=== PATIENT | female | born 1960 | race Caucasian/White ===

== ENCOUNTER 2022-10-23 11:01 | Inpatient (IN) ==
--- NOTE | 2022-10-23 12:06 | XRay Report ---
XR chest 2V PA/lateral CLINICAL HISTORY: abd pain TECHNIQUE: 2 views of the chest were obtained. Comparison: None available at the time of this dictation. FINDINGS: No lines and tubes are seen. The cardiomediastinal silhouette is normal. The lungs are clear. No evid ence of pleural effusion or pneumothorax. IMPRESSION: No acute chest disease. ACT 112: Negative or not required by law. Electronically signed by: Deshawn Paulino M.D. 10/23/2022 12:05 PM
--- NOTE | 2022-10-23 12:39 | Emergency Department Note ---
Impression & Plan Abdominal pain, Acute GI bleeding ED Provider Note ED Provider Note NAME: АНДРЕЙ MAE AGE:62 SEX: Female : 1960 ARRIVES VIA: Private vehicle INFORMANT: Patient ED PROVIDER(s): Ghislaine Ferguson DO CHIEF COMPLAINT: Abdominal pain, GI bleed HPI: This is a 62-year-old female presents emergency room due to concern for abdominal pain and GI bleed which started overnight. She states she began developing an ache in her central/lower abdomen and then had a sharp pain and when she went to the bathroom she saw bright red blood. She denies any additional passage of stool or diarrhea. She denies any recent change in her bowel movements. No bleeding from any other source. No use of antiplatelet or anticoagulation medications. She denies fevers, chills, nausea or vomiting. She states she was initially distended, however that has now improved. She states she now only has a dull ache in her lower abdomen, no further sharper pains. She states no prior history of PUD, IBS, or IBD. She has had a prior colonoscopy that she states was reported to her as normal. PAST MEDICAL HISTORY:See Below PAST SURGICAL HISTORY:See Below FAMILY HISTORY:See Below SOCIAL HISTORY:See Below HOME MEDICATIONS:See Below ALLERGIES:See Below VITALS:See Below PHYSICAL EXAMINATION: GENERAL: alert, well appearing, well nourished, no distress, non-toxic EYE EXAM: normal conjunctiva, PERRL and EOM's grossly intact OROPHARYNX: no exudate, no erythema, lips, buccal mucosa, and tongue normal and mucous membranes are moist NECK: supple, no nuchal rigidity, no adenopathy, non-tender LUNGS: Clear to auscultation. Normal chest wall mechanics, no w/r/r HEART: no murmurs, S1 normal and S2 normal ABDOMEN: abdomen soft, non-tender, normo-active bowel sounds, no masses, no rebound or guarding. BACK: Back is symmetrical on inspection and there is no deformity, no midline tenderness, no CVA tenderness. SKIN: no rashes, petechiae, orbruising UPPER EXTREMITIES: upper extremities are grossly normal. FROM, nml pulses b/l. LOWER EXTREMITIES: No pitting edema. FROM, nml pulses b/l. NEURO EXAM: Normal sensorium, cranial nerves II-XII grossly intact, normal speech, no facial droop,nogross weakness of arms, no gross weakness of legs. Gross sensation intact. No ataxia. Vital Signs: reviewed and remarkable Differential Diagnosis: Colitis, diverticulitis, diverticular bleed, AVM, mass, mesenteric ischemia, bowel obstruction, as well as others were considered MEDICAL DECISION MAKING: This is a 62-year-old female presents emergency department complaining of abdominal pain and diarrhea bright red blood. Patient had several episodes at home before presenting here. No history of inflammatory bowel disease or recent surgery. Patient was afebrile and vital signs stable. Labs drawn and sent, IV established, patient monitored on telemetry and sent for additional CT imaging. Patient had 4 additional episodes here of bright red blood per rectum. CT did show extensive colitis. Lactic acid and procalcitonin reassuring. H&H stable despite significant leukocytosis noted. Given persistent symptoms here and concern for ongoing losses as well as unclear etiology of colitis, case was discussed with the hospitalist team for additional evaluation and management. We did discuss empiric antibiotics versus awaiting their evaluation. They would like to evaluate the patient first before deciding on antibiotics. Patient made hemodynamically stable in the emergency room. At this time I have a lower suspicion for occult ischemic colitis. No recent risk factors for acute bacterial infection such as immunocompromise state, travel, or recent antibiotics. Consultation(s): 1617: Discussed with Lindy Anderson hospitalist team. ER Treatment Provided: See below 1545: Patient updated on results. States she has had 4 episodes here of BRBPR. Diagnostics Interpreted By Me: -ECG: [] -Cardiac Monitoring: An order was placed for continuous cardiac monitoring. The monitor shows a rate of 100 with normal sinus rhythm. -Laboratory studies: As stated above and show below. -Imaging studies: X-ray Chest: A single view study of the chest was reviewed and was negative for cardiomegaly, focal infiltrate, effusion, pulmonary edema, or wide mediastinum. Triage Nursing Note Reviewed Prior/Outside Records Reviewed Past Med/Surg History Medical History Chronic headache GERD (gastroesophageal reflux disease) HTN (hypertension) Panic disorder Pulmonary nodule Surgical History Hx of tubal ligation Family History Denies family history of Colorectal cancer Inflammatory bowel disease Social History Smoking Status: Former smoker Tobacco Type: E-cigarettes / Vaping Hx Alcohol Use: Yes Alcohol Intake Frequency: 2-4 x/Month Hx Substance Use: No Preferred Language: Ukrainian Communication Ability: Effective Prison Keeper Required: No Beliefs That Will Affect Care: None marital status: Current Living Situation: Spouse Feels Safe at Home: Yes Safety Concerns: Feels Safe At This Time Assistive Devices: Glasses Allergies Allergies Allergy/AdvReac Type Severity Reaction Status Date / Time No Known Drug Allergies AdvReac Unknown Verified 10/23/22 17:44 Home Meds Home Medications Medication Instructions Recorded Confirmed acetaminophen 500 mg tablet 500 mg PO Q6H PRN Pain 10/23/22 10/23/22 amitriptyline 25 mg tablet 50 mg PO HS headache prevention 10/23/22 10/23/22 citalopram 40 mg tablet 40 mg PO QAM 10/23/22 10/23/22 lisinopril 10 mg tablet 10 mg PO QAM 10/23/22 10/23/22 tizanidine 4 mg tablet 4 mg PO Q8H PRN Muscle Spasm 10/23/22 10/23/22 triamcinolone acetonide 0.1 % 1 applic topical DAILY rash on 10/23/22 10/23/22 topical ointment arms/legs Results & Data (ED) Vital Signs Vital Signs - 24 hr 10/23/22 11:29 10/23/22 14:52 Temperature 36.7 C 36.7 C Temperature Source Temporal Artery Scan Oral Pulse Rate 102 H Pulse Rate [Radial] 90 Respiratory Rate 20 18 Respiratory Effort / Characteristics Non-Labored Blood Pressure 158/97 H Blood Pressure [Right Arm] 177/97 H Blood Pressure Mean 117 Blood Pressure Mean [Right Arm] 123 Pulse Oximetry 98 95 Oxygen Delivery Method Room Air Room Air Sepsis Recent Fever Within 48 Hours No Sepsis New/Unexplained Change in Mental Status N/A Sepsis Action Taken by Nursing No Action Required Laboratory Data 10/23/22 12:22 10/23/22 12:22 Lab Results 07/03/23 07/03/23 07/03/23 Range/Units 12:22 12:22 14:44 WBC 19.21 H (4.8-10.8) K/ul RBC 4.46 (4.20-5.40) M/uL Hgb 13.7 (12.0-16.0) g/dl Hct 39.2 (37.0-47.0) % MCV 87.9 (80.0-100.0) fL MCH 30.7 (25.0-34.0) pg MCHC 34.9 (32.0-36.0) g/dL RDW Std Deviation 41.7 (36.4-46.3) fL RDW Coeff of [place] 13.0 (11.5-14.5) % Plt Count 352 (130-400) K/uL MPV 8.4 L (9.4-12.4) fL Immature Gran % (Auto) 0.5 % Neut % (Auto) 80.8 % Lymph % (Auto) 8.9 % [place] % (Auto) 9.2 % Eos % (Auto) 0.2 % Baso % (Auto) 0.4 % Neut # (Auto) 15.53 H (1.40-6.50) K/uL Lymph # (Auto) 1.71 (1.2-3.4) K/uL [place] # (Auto) 1.77 H (0.11-0.59) K/uL Eos # (Auto) 0.03 (0-0.50) K/uL Baso # (Auto) 0.07 (0-0.2) K/uL Immature Gran # (Auto) 0.10 (0.01-0.20) K/uL Sodium 137 (136-145) mmol/L Potassium 3.9 (3.5-5.1) mmol/L Chloride 102 (98-107) mmol/L Carbon Dioxide 26 (21-32) mmol/L Anion Gap 9 (3-11) BUN 13 (6-23) mg/dl Creatinine 0.71 (0.6-1.2) mg/dl Est Cr Clr Drug Dosing 77.9 ml/min Est GFR ( Amer) 106.5 ml/min Est GFR (Non-Af Amer) 91.9 ml/min BUN/Creatinine Ratio 18.3 (10-20) Glucose 110 H (70-99(Fasting)) mg/dl Lactate (0.4-2.0) mmol/L Calcium 10.1 (8.6-10.3) mg/dl Total Bilirubin 0.4 (0.2-1.0) mg/dl AST 24 (13-39) U/L ALT 21 (7-52) U/L Alkaline Phosphatase 78 (34-104) U/L Total Protein 7.7 (6.0-8.3) gm/dl Albumin 4.6 (3.4-5.0) gm/dl Globulin 3.1 (2.5-4.0) gm/dl Albumin/Globulin Ratio 1.5 (0.9-2) Lipase 14 (11-82) U/L Procalcitonin (0-0.5) ng/ml Urine Color Yellow Urine Appearance Clear (Clear) Urine pH 7.5 (4.5-7.5) Ur Specific [place] 1.031 H (1.000-1.030) Urine Protein Negative (Negative) Urine Glucose (UA) Negative (Negative) Urine Ketones Negative (Negative) Urine Blood Trace H (Negative) Urine Nitrite Negative (Negative) Urine Bilirubin Negative (Negative) Urine Urobilinogen Negative (Negative) Ur Leukocyte Esterase 1+ H (Negative) Urine WBC (Auto) 1-5 (0-5) /hpf Urine RBC (Auto) 0-4 (0-4) /hpf U Hyaline Cast (Auto) 1-5 (0-5) /lpf U Epithel Cells (Auto) >30 H (0-5) /lpf Urine Bacteria (Auto) Negative (Negative) SARS-CoV-2 (PCR) (Negative) Influenza Type A (PCR) (Neg) Influenza Type B (PCR) (Neg) RSV (RT-PCR) (Neg) 10/23/22 10/23/22 10/23/22 Range/Units 15:06 15:06 16:07 WBC (4.8-10.8) K/ul RBC (4.20-5.40) M/uL Hgb (12.0-16.0) g/dl Hct (37.0-47.0) % MCV (80.0-100.0) fL MCH (25.0-34.0) pg MCHC (32.0-36.0) g/dL RDW Std Deviation (36.4-46.3) fL RDW Coeff of [place] (11.5-14.5) % Plt Count (130-400) K/uL MPV (9.4-12.4) fL Immature Gran % (Auto) % Neut % (Auto) % Lymph % (Auto) % [place] % (Auto) % Eos % (Auto) % Baso % (Auto) % Neut # (Auto) (1.40-6.50) K/uL Lymph # (Auto) (1.2-3.4) K/uL [place] # (Auto) (0.11-0.59) K/uL Eos # (Auto) (0-0.50) K/uL Baso # (Auto) (0-0.2) K/uL Immature Gran # (Auto) (0.01-0.20) K/uL Sodium (136-145) mmol/L Potassium (3.5-5.1) mmol/L Chloride (98-107) mmol/L Carbon Dioxide (21-32) mmol/L Anion Gap (3-11) BUN (6-23) mg/dl Creatinine (0.6-1.2) mg/dl Est Cr Clr Drug Dosing ml/min Est GFR ( Amer) ml/min Est GFR (Non-Af Amer) ml/min BUN/Creatinine Ratio (10-20) Glucose (70-99(Fasting)) mg/dl Lactate 1.5 (0.4-2.0) mmol/L Calcium (8.6-10.3) mg/dl Total Bilirubin (0.2-1.0) mg/dl AST (13-39) U/L ALT (7-52) U/L Alkaline Phosphatase (34-104) U/L Total Protein (6.0-8.3) gm/dl Albumin (3.4-5.0) gm/dl Globulin (2.5-4.0) gm/dl Albumin/Globulin Ratio (0.9-2) Lipase (11-82) U/L Procalcitonin 0.13 (0-0.5) ng/ml Urine Color Urine Appearance (Clear) Urine pH (4.5-7.5) Ur Specific [place] (1.000-1.030) Urine Protein (Negative) Urine Glucose (UA) (Negative) Urine Ketones (Negative) Urine Blood (Negative) Urine Nitrite (Negative) Urine Bilirubin (Negative) Urine Urobilinogen (Negative) Ur Leukocyte Esterase (Negative) Urine WBC (Auto) (0-5) /hpf Urine RBC (Auto) (0-4) /hpf U Hyaline Cast (Auto) (0-5) /lpf U Epithel Cells (Auto) (0-5) /lpf Urine Bacteria (Auto) (Negative) SARS-CoV-2 (PCR) NEGATIVE (Negative) Influenza Type A (PCR) Negative (Neg) Influenza Type B (PCR) Negative (Neg) RSV (RT-PCR) Negative (Neg) Administered Medications Amitriptyline HCl (Amitriptyline Hcl 50 Mg Tab) 50 mg PO HS [facility] Stop: 11/22/22 20:59 Last Admin: 10/23/22 21:05 Dose: 50 mg Documented By: GABRIELLA Citalopram Hydrobromide (Citalopram 40 Mg Tab) 40 mg PO QAM [facility] Stop: 11/23/22 08:59 Last Admin: 10/24/22 08:04 Dose: 40 mg Documented By: SHAYY Piperacillin Sod/Tazobactam (Sod 4.5 gm/ Dextrose) 120 mls @ 30 mls/hr IV Q8H [facility]; Protocol Stop: 11/02/22 00:00 Last Infusion: 10/24/22 12:15 Dose: 0 mls/hr Documented By: Admin: 10/24/22 08:10 Dose: 30 mls/hr Documented By: Infusion: 10/24/22 03:47 Dose: 0 mls/hr Documented By: Admin: 10/23/22 23:47 Dose: 30 mls/hr Documented By: GABRIELLA Acetaminophen (Ofirmev) 1,000 mg in 100 mls @ 400 mls/hr IV Q8H [facility] Stop: 10/26/22 18:59 Last Infusion: 10/24/22 11:29 Dose: 0 mls/hr Documented By: Admin: 10/24/22 11:00 Dose: 400 mls/hr Documented By: Infusion: 10/24/22 03:03 Dose: 0 mls/hr Documented By: Admin: 10/24/22 02:46 Dose: 400 mls/hr Documented By: Infusion: 10/23/22 19:33 Dose: 0 mls/hr Documented By: Admin: 10/23/22 19:18 Dose: 400 mls/hr Documented By: GABRIELLA Lactated Ringer's (Lr) 1,000 mls @ 125 mls/hr IV .Q8H [facility] Stop: 11/22/22 18:18 Last Admin: 10/24/22 14:59 Dose: 125 mls/hr Documented By: Infusion: 10/24/22 14:44 Dose: 0 mls/hr Documented By: Admin: 10/24/22 11:30 Dose: Not Given Documented By: Infusion: 10/24/22 11:00 Dose: 125 mls/hr Documented By: Infusion: 10/24/22 08:17 Dose: 0 mls/hr Documented By: Admin: 10/24/22 02:43 Dose: 125 mls/hr Documented By: Infusion: 10/24/22 02:43 Dose: 125 mls/hr Documented By: Admin: 10/23/22 19:21 Dose: 125 mls/hr Documented By: GABRIELLA Lisinopril (Lisinopril 10 Mg Tab) 10 mg PO QAM [facility] Stop: 11/23/22 08:59 Last Admin: 10/24/22 08:05 Dose: 10 mg Documented By: SHAYY Discontinued Medications Sodium Chloride (Nss 1000ml) 1,000 mls @ 250 mls/hr IV .Q4H [facility] Stop: 11/22/22 12:59 Last Admin: 10/23/22 18:43 Dose: Not Given Documented By: Infusion: 10/23/22 17:36 Dose: 0 mls/hr Documented By: Admin: 10/23/22 13:15 Dose: 250 mls/hr Documented By: DAVID Piperacillin Sod/Tazobactam Sod (Zosyn) 4.5 gm in 120 mls @ 240 mls/hr IV NOW ONE Stop: 10/23/22 17:56 Last Admin: 10/23/22 18:43 Dose: Not Given Documented By: LYNN Acetaminophen (Ofirmev) 1,000 mg in 100 mls @ 400 mls/hr IV NOW STA Stop: 10/23/22 17:41 Last Admin: 10/23/22 18:43 Dose: Not Given Documented By: LYNN Piperacillin Sod/Tazobactam (Sod 4.5 gm/ Dextrose) 120 mls @ 240 mls/hr IV NOW ONE; Protocol Stop: 10/23/22 19:29 Last Infusion: 10/23/22 20:10 Dose: 0 mls/hr Documented By: Admin: 10/23/22 19:40 Dose: 240 mls/hr Documented By: GABRIELLA Ioversol (Optiray 320 100ml) 91 ml IV ONCE ONE Stop: 10/23/22 13:39 Last Admin: 10/23/22 13:38 Dose: 91 ml Documented By: TIANNA Miscellaneous Information (Patient's Allergy Info Needs Entered) 1 each N/A Q30M [facility] Stop: 11/22/22 17:29 Last Admin: 10/23/22 18:34 Dose: Not Given Documented By: Admin: 10/23/22 18:29 Dose: Not Given Documented By: Admin: 10/23/22 18:29 Dose: Not Given Documented By: LYNN Imaging Data Radiologist's Impression: Chest X-Ray 10/23/22 11:34 XR chest 2V PA/lateral CLINICAL HISTORY: abd pain TECHNIQUE: 2 views of the chest were obtained. Comparison: None available at the time of this dictation. FINDINGS: No lines and tubes are seen. The cardiomediastinal silhouette is normal. The lungs are clear. No evidence of pleural effusion or pneumothorax. IMPRESSION: No acute chest disease. ACT 112: Negative or not required by law. Electronically signed by: Deshawn Paulino M.D. 10/23/2022 12:05 PM Abdomen/Pelvis CT 10/23/22 12:50 CT OF THE ABDOMEN AND PELVIS WITH CONTRAST CLINICAL HISTORY: Abdominal pain. GI bleed. COMPARISON STUDY: None. TECHNIQUE: Following IV administration of 91 mL of Optiray, axial images of the abdomen and pelvis were obtained from the lung bases to the proximal femurs. Images were reviewed in the axial, sagittal, and coronal planes. IV contrast was administered without complication. Automated exposure control was utilized for the study. A dose lowering technique was utilized adhering to the principles of ALARA. CT DOSE: 930.33 mGy.cm FINDINGS: Lung bases are unremarkable. No pneumatosis stenosis, free air or portal venous gas is present. There are no hepatic lesions. There is no biliary or pancreatic ductal dilatation. The spleen, adrenal glands and kidneys are unremarkable. There is no hydronephrosis. There is no evidence for a bowel obstruction. The appendix is normal. Note is made of moderate wall thickening of the distal transverse colon, the splenic flexure of the colon and the proximal to mid descending colon. There is associated pericolonic stranding and a small amount of fluid. No abscess is present. No lymphadenopathy is present. There is moderate plaque of the abdominal aorta. The proximal mesenteric vessels are patent. IMPRESSION: Moderate wall thickening with associated pericolonic stranding and fluid involving the distal transverse colon, the splenic flexure and the proximal to mid descending colon. This represents a colitis. Although nonspecific, this distribution raises the possibility of ischemic colitis. No abscess. No free air. ACT 112: Negative or not required by law. Electronically signed by: John Figueroa M.D. 10/23/2022 2:10 PM Discharge Plan Visit Data Chief Complaint: Diarrhea Stated Complaint: BLOOD IN STOOL; DIARRHEA ED Provider: Ghislaine Ferguson Discharge Problem: Abdominal pain, Acute GI bleeding Patient Disposition: Admitted As Inpatient Discharge Instructions Interventions: ED Discharge Assessment Last Done: 10/23/22 17:35
[2022-10-23 12:53] LABS: Basophils # (auto) 0.07 K/uL (0-0.2); Basophils % (auto) 0.4 %; Eosinophils # (auto) 0.03 K/uL (0-0.50); Eosinophils % (auto) 0.2 %; Hematocrit (blood only) 39.2 % (37.0-47.0); Hemoglobin 13.7 g/dl (12.0-16.0); Immature Granulocytes % (auto) 0.5 %; Lymphocytes # (auto) 1.71 K/uL (1.2-3.4); Lymphocytes % (auto) 8.9 %; Mean Corpuscular Hemoglobin 30.7 pg (25.0-34.0); Mean Corpuscular Hgb Conc 34.9 g/dL (32.0-36.0); Mean Corpuscular Volume 87.9 fL (80.0-100.0); Mean Platelet Volume 8.4 fL (9.4-12.4); Monocytes # (auto) 1.77 K/uL (0.11-0.59); Monocytes % (auto) 9.2 %; Neutrophils # (auto) 15.53 K/uL (1.40-6.50); Neutrophils % (auto) 80.8 %; Platelet Count 352 K/uL (130-400); RDW Standard Deviation 41.7 fL (36.4-46.3); Red Blood Count 4.46 M/uL (4.20-5.40); White Blood Count 19.21 K/ul (4.8-10.8)
[2022-10-23 13:09] LABS: Albumin Globulin Ratio 1.5 (0.9-2); Albumin Level 4.6 gm/dl (3.4-5.0); BUN Creatinine Ratio 18.3 (10-20); Bilirubin,Total 0.4 mg/dl (0.2-1.0); Calcium 10.1 mg/dl (8.6-10.3); Creatinine Clr Calc Pharmacy 77.9 ml/min; Est GFR (African American) 106.5 ml/min; Est GFR (Non-African American) 91.9 ml/min; Globulin 3.1 gm/dl (2.5-4.0); Potassium 3.9 mmol/L (3.5-5.1); Total Protein 7.7 gm/dl (6.0-8.3)
[2022-10-23] MEDS: SODIUM CHLORIDE 0.9% 1000ML 1,000 ML IV SCH ×2 (13:15→18:43)
[2022-10-23] MEDS ORDERED: OPTIRAY 320 100ml IV ONE (13:38)
--- NOTE | 2022-10-23 14:11 | CT Scan Report ---
CT OF THE ABDOMEN AND PELVIS WITH CONTRAST CLINICAL HISTORY: Abdominal pain. GI bleed. COMPARISON STUDY: None. TECHNIQUE: Following IV administration of 91 mL of Optiray, axial images of the abdomen and pelvis we re obtained from the lung bases to the proximal femurs. Images were reviewed in the axial, sagittal, and coronal planes. IV contrast was administered without complication. Automated exposure control wa s utilized for the study. A dose lowering technique was utilized adhering to the principles of ALARA . CT DOSE: 930.33 mGy.cm FINDINGS: Lung bases are unremarkable. No pneumatosis stenosis, free air or portal venous gas is pres ent. There are no hepatic lesions. There is no biliary or pancreatic ductal dilatation. The spleen, a drenal glands and kidneys are unremarkable. There is no hydronephrosis. There is no evidence for a nubia wel obstruction. The appendix is normal. Note is made of moderate wall thickening of the distal trans verse colon, the splenic flexure of the colon and the proximal to mid descending colon. There is asso ciated pericolonic stranding and a small amount of fluid. No abscess is present. No lymphadenopathy i s present. There is moderate plaque of the abdominal aorta. The proximal mesenteric vessels are paten t. IMPRESSION: Moderate wall thickening with associated pericolonic stranding and fluid involving the d istal transverse colon, the splenic flexure and the proximal to mid descending colon. This represents a colitis. Although nonspecific, this distribution raises the possibility of ischemic colitis. No ab scess. No free air. ACT 112: Negative or not required by law. Electronically signed by: John Figuerao M.D. 10/23/2022 2:10 PM
[2022-10-23 15:10] LABS: Appearance Urine Clear (Clear); Bacteria Urine Automated Negative (Negative); Bilirubin Urine Negative (Negative); Blood Urine Trace (Negative); Color Urine Yellow; Epithelial Cell Urine Auto >30 /lpf (0-5); Glucose Urine UA Negative (Negative); Ketones Urine Negative (Negative); Leukocyte Esterase Urine 1+ (Negative); Nitrite Urine Negative (Negative); Protein Urine Negative (Negative); RBC Urine Automated 0-4 /hpf (0-4); Specific Gravity Urine 1.031 (1.000-1.030); Urobilinogen Urine Negative (Negative); pH Urine 7.5 (4.5-7.5)
[2022-10-23 17:11] LABS: Influenza A virus by PCR Negative (Neg); Influenza B virus by PCR Negative (Neg); RSV by PCR Negative (Neg); SARS CoV2 RNA(COVID-19) Ceph NEGATIVE (Negative)
[2022-10-23] MEDS ORDERED: ACETAMINOPHEN 1,000 MG/100 ML VIAL IV STA (17:27)
[2022-10-23] MEDS ORDERED: PIPERACILLIN/TAZOBACTAM 4.5 GM/120 ML BAG IV ONE (17:27)
--- NOTE | 2022-10-23 17:32 | History & Physical Report ---
Date of Service October 23, 2022 Assessment & Plan (1) Colitis: (2) Acute GI bleeding: (3) Abdominal pain: (4) Leukocytosis: Plan This is a 62-year-old female who has a significant past medical history of HTN, chronic migraine, chronic daily headache, panic disorder, GERD who presents to ED secondary to abdominal pain and bloody diarrhea x1 day. Colitis Acute GI bleeding Abdominal pain Leukocytosis Admit to PCU in setting of GI bleeding Current hemoglobin stable Repeat hemoglobin and lactic acid at 2000 Initial lactic acid negative LR at 125 cc/h IV zosyn Consult GI Type and cross for 1 unit to be placed on hold, blood consent obtained Obtain stool culture if able Schedule IV Tylenol with as needed IV morphine for breakthrough pain NPO except sips/meds Blood consent was obtained from the patient (or patient delegate) as delegated by Dr. Perez. Risks and benefits were explained. All questions were answered, and the patient was offered the opportunity to discuss with attending physician and declined. Migraine GOTTLIEB, chronic continue elavil, prn tizanadine HTN bp elevated in ED, likely 2/2 pain continue lisinopril Panic disorder continue cymbalta DVT ppx: SCDs 2/2 GI Bleeding FULL CODE PCP: Dr. Laureano Whitaker Pt was seen and examined in collaboration with Dr. Perez please see addendum History of Present Illness Chief Complaint: Abdominal pain x1 day. Primary Care Provider: Dr. Whitaker This is a 62-year-old female who has a significant past medical history of HTN, chronic migraine, chronic daily headache, panic disorder, GERD who presents to ED secondary to abdominal pain and bloody diarrhea x1 day. Symptoms started at approximately 1 AM this morning when she developed centralized and lower suprapubic abdominal pain. Pain was constant but would wax and wane in severit y. Described as dull and occasionally crampy. Pain did not radiate. She is never experienced this before. It was initially associated with a few episodes of diarrhea and now mostly just passing bright red blood per rectum. Currently pain is a 4 out of 10 but at its worst was an 8 out of 10. She has not tried anything to relieve the pain. Leaning forward makes the pain worse. She does have history of colonoscopy back in 2012 which was otherwise unremarkable. Only prior abdominal history was a tubal. She is a prior tobacco smoker and currently does vape nicotine. She occasionally has alcohol. She denies any recent travel, sick contacts or change in diet. She denies any fever, chills, sweats, lightheadedness, dizziness, chest pain, shortness of breath, cough, nausea, vomiting. She currently does have a headache and attributes this to her chronic daily headache. She is currently requesting something for pain. In ED patient remained hemodynamically stable that was significantly hypertensive. CBC revealed leukocytosis at 19.21 K, H&H stable at 13.7 and 39.2, glucose mildly elevated at 110, lactic acid normal at 1.5 and procalcitonin 0.13. Allergies Allergy/AdvReac Type Severity Reaction Status Date / Time No Known Drug Allergies AdvReac Unknown Verified 10/23/22 17:44 Home Medications Medication Instructions Recorded Confirmed Type acetaminophen 500 mg tablet 500 mg PO Q6H PRN Pain 10/23/22 10/23/22 History amitriptyline 25 mg tablet 50 mg PO HS headache prevention 10/23/22 10/23/22 History citalopram 40 mg tablet 40 mg PO QAM 10/23/22 10/23/22 History lisinopril 10 mg tablet 10 mg PO QAM 10/23/22 10/23/22 History tizanidine 4 mg tablet 4 mg PO Q8H PRN Muscle Spasm 10/23/22 10/23/22 History triamcinolone acetonide 0.1 % 1 applic topical DAILY rash on 10/23/22 10/23/22 History topical ointment arms/legs Past Med/Surg History Medical History (Updated 10/23/22 @ 17:40 by Monica Nunez PA-C) Chronic headache GERD (gastroesophageal reflux disease) HTN (hypertension) Panic disorder Pulmonary nodule Surgical History (Updated 10/23/22 @ 17:34 by Monica Nunez PA-C) Hx of tubal ligation Family History (Updated 10/23/22 @ 17:35 by Monica Nunez PA-C) Denies family history of Colorectal cancer Inflammatory bowel disease Social History (Updated 10/23/22 @ 17:34 by Monica Nunez PA-C) Smoking Status: Former smoker Tobacco Type: E-cigarettes / Vaping Hx Alcohol Use: Yes Alcohol Intake Frequency: 2-4 x/Month Hx Substance Use: No Preferred Language: Tajik Communication Ability: Effective Projection Camera Operator Required: No Beliefs That Will Affect Care: None marital status: Current Living Situation: Spouse Feels Safe at Home: Yes Safety Concerns: Feels Safe At This Time Assistive Devices: Glasses Review of Systems Review of Systems: All systems reviewed & are unremarkable except as noted in HPI & below Physical Exam Physical Exam: Constitutional: WD/WN, vitals as above, NAD, sitting up in bed, pleasant, conversing easily Head: Normocephalic, Atraumatic Eyes: PERRL, conjunctivae normal, anicteric sclerae ENMT: external ear and nose normal, oropharynx normal Neck: trachea midline, no thyromegaly normal visual inspection Respiratory: normal respiratory effort, lungs clear to auscultation, no wheeze, rales, rhonchi. Normal insp/exp effort, no accessory muscle use Cardiovascular: RRR, no murmur, no edema Vessels: no JVD or carotid bruit Chest: normal inspection of chest Abdomen: normal bowel sounds, soft, minimally tender to palp LUQ, no hepatosplenomegaly Musculoskeletal: no cyanosis or clubbing, extremities motor strength 5/5 Skin: no rashes, warm and dry normal turgor Neurologic: PERRL, EOMI, accommodation nl, no face palsy, no dysarthria CN's II-XI intact bilaterally and moves all extremities Psychiatric: A+Ox3, euthymic affect Lymphatic: no cervical or axillary lymphadenopathy : deferred Results & Data Results & Data Vital Signs (Past 12 Hours) Vital Signs Temp Pulse Pulse Resp BP BP Pulse Ox 10/23/22 14:52 36.7 C 90 18 177/97 H 95 10/23/22 11:29 36.7 C 102 H 20 158/97 H 98 O2 Del Method 10/23/22 14:52 Room Air 10/23/22 11:29 Room Air Diagnostic Findings Chest X-Ray 10/23/22 11:34 XR chest 2V PA/lateral CLINICAL HISTORY: abd pain TECHNIQUE: 2 views of the chest were obtained. Comparison: None available at the time of this dictation. FINDINGS: No lines and tubes are seen. The cardiomediastinal silhouette is normal. The lungs are clear. No evidence of pleural effusion or pneumothorax. IMPRESSION: No acute chest disease. ACT 112: Negative or not required by law. Electronically signed by: Deshawn Paulino M.D. 10/23/2022 12:05 PM Abdomen/Pelvis CT 10/23/22 12:50 CT OF THE ABDOMEN AND PELVIS WITH CONTRAST CLINICAL HISTORY: Abdominal pain. GI bleed. COMPARISON STUDY: None. TECHNIQUE: Following IV administration of 91 mL of Optiray, axial images of the abdomen and pelvis were obtained from the lung bases to the proximal femurs. Images were reviewed in the axial, sagittal, and coronal planes. IV contrast was administered without complication. Automated exposure control was utilized for the study. A dose lowering technique was utilized adhering to the principles of ALARA. CT DOSE: 930.33 mGy.cm FINDINGS: Lung bases are unremarkable. No pneumatosis stenosis, free air or portal venous gas is present. There are no hepatic lesions. There is no biliary or pancreatic ductal dilatation. The spleen, adrenal glands and kidneys are unremarkable. There is no hydronephrosis. There is no evidence for a bowel obstruction. The appendix is normal. Note is made of moderate wall thickening of the distal transverse colon, the splenic flexure of the colon and the proximal to mid descending colon. There is associated pericolonic stranding and a small amount of fluid. No abscess is present. No lymphadenopathy is present. There is moderate plaque of the abdominal aorta. The proximal mesenteric vessels are patent. IMPRESSION: Moderate wall thickening with associated pericolonic stranding and fluid involving the distal transverse colon, the splenic flexure and the proximal to mid descending colon. This represents a colitis. Although nonspecific, this distribution raises the possibility of ischemic colitis. No abscess. No free air. ACT 112: Negative or not required by law. Electronically signed by: John Figueroa M.D. 10/23/2022 2:10 PM Medications Administered Medication List Sodium Chloride (Nss 1000ml) 1,000 mls @ 250 mls/hr IV .Q4H EMILE Stop: 11/22/22 12:59 Last Admin: 10/23/22 13:15 Dose: 250 mls/hr Documented By: NRB Discontinued Medications Ioversol (Optiray 320 100ml) 91 ml IV ONCE ONE Stop: 10/23/22 13:39 Last Admin: 10/23/22 13:38 Dose: 91 ml Documented By: TIANNA COVID-19 Results Results COVID-19 Adm Lab Results: RBC 4.46 M/uL (4.20-5.40) 10/23/22 WBC 19.21 K/ul (4.8-10.8) H 10/23/22 Hgb 14.5 g/dl (12.0-16.0) 10/23/22 Hct 41.6 % (37.0-47.0) 10/23/22 Plt Count 352 K/uL (130-400) 10/23/22 Neutrophils (%) (Auto) 80.8 % 10/23/22 Lymphocytes (%) (Auto) 8.9 % 10/23/22 Monocytes # (Auto) 1.77 K/uL (0.11-0.59) H 10/23/22 Eosinophils # (Auto) 0.03 K/uL (0-0.50) 10/23/22 Immature Granulocyte % (Auto) 0.5 % 10/23/22 Neutrophils # (Auto) 15.53 K/uL (1.40-6.50) H 10/23/22 Lymphocytes # (Auto) 1.71 K/uL (1.2-3.4) 10/23/22 Monocytes # (Auto) 1.77 K/uL (0.11-0.59) H 10/23/22 Eosinophils # (Auto) 0.03 K/uL (0-0.50) 10/23/22 Basophils # (Auto) 0.07 K/uL (0-0.2) 10/23/22 Immature Granulocyte # (Auto) 0.10 K/uL (0.01-0.20) 3 Na 137 mmol/L (136-145) 10/23/22 K 3.9 mmol/L (3.5-5.1) 10/23/22 Cl 102 mmol/L (98-107) 10/23/22 CO2 26 mmol/L (21-32) 10/23/22 Anion Gap 9 (3-11) 10/23/22 BUN 13 mg/dl (6-23) 10/23/22 Creatinine 0.71 mg/dl (0.6-1.2) 10/23/22 BUN/Creatinine Ratio 18.3 (10-20) 10/23/22 Glucose Level 110 mg/dl (70-99(Fasting)) H 10/23/22 Ca 10.1 mg/dl (8.6-10.3) 10/23/22 Total Bilirubin 0.4 mg/dl (0.2-1.0) 10/23/22 AST/SGOT 24 U/L (13-39) 10/23/22 ALT/SGPT 21 U/L (7-52) 10/23/22 Alkaline Phosphatase 78 U/L (34-104) 10/23/22 Total Protein 7.7 gm/dl (6.0-8.3) 10/23/22 Albumin 4.6 gm/dl (3.4-5.0) 10/23/22 Globulin 3.1 gm/dl (2.5-4.0) 10/23/22 Albumin/Globulin Ratio 1.5 (0.9-2) 10/23/22 Procalcitonin 0.13 ng/ml (0-0.5) 10/23/22 COVID-19 PCR NEGATIVE (Negative) 10/23/22 Influenza Virus Type A (PCR) Negative (Neg) 10/23/22 Influenza Virus Type B (PCR) Negative (Neg) 10/23/22 Chest X-Ray 10/23/22 Code Status & VTE Plan Code Status FULL CODE VTE Prophylaxis Plan VTE Prophylaxis will be ordered: Yes Supervising Physician Co-Signing Physician Notes Ms. Lazaro is a 62 year old female with pmhx (per chart) of HTN, chronic migraine, chronic daily headache, panic disorder, and GERD. She presented with 1 day of painful bloody diarrhea. Here she was found to have colitis on CT. Hgb/hct remains stable thus far. Pt seen and examined at bedside. She endorses 1 day of painful bloody diarrhea that is ongoing. She is currently pain free. Pain develops and builds up until she has a bowel movement which relieves the pain. She denies dizziness, lightheadedness, f/c/n/v, CP, palpitations, and sob. She has no other complaints. PE: General: NAD, well nourished, non-toxic appearing Head: NC AT Eyes: anicteric sclera, no conjunctival injection Nose: nares patent Mouth: MMM Neck: supple, trachea midline CV: RRR S1 S2 Pulm: CTA b/l Abd/GI: + BS, soft, NT, ND, no guarding : no palafox Ext: no pretibial edema MSK: normal bulk and tone Neuro: moving all 4 extremities symmetrically, alert and Ox3, no focal deficits Psych: pleasant mood and affect Skin: visible skin is warm, dry, and without rash. Pt not fully undressed for exam. # acute GIB: based on presentation likely LGIB therefore will hold off on IV PPI serial h/h, t&S, maintain 2 large bore IV, transfuse as needed to maintain hgb > 7 continue Zosyn for possible infectious etiology continue IVF, anticipate some drop in h/h d/t hemodilution CT read as possible ischemic colitis however exam is not consistent with that and lactic acid is wnl making this unlikely GI consulted, appreciate input, will follow recs continue analgesia no nsaids # HTN: continue lisinopril, increase dose if needed # chronic GOTTLIEB, Migraine: continue Amitriptyline no complaints at this time # panic disorder: no complaints despite fireworks, continue Citalopram Rest per attested note above
[2022-10-23] MEDS ORDERED: MoRPHine SULFATE 4 MG/ML 1 ML CARP\\VIAL IV PRN (18:19)
[2022-10-23] MEDS ORDERED: tiZANidine HCL 4 MG TABLET PO PRN (18:19)
[2022-10-23] MEDS ORDERED: MoRPHine SULFATE 2 MG/ML CARP IV PRN (18:19)
[2022-10-23] MEDS ORDERED: ACETAMINOPHEN 325 MG TAB PO PRN (18:19)
[2022-10-23] MEDS ORDERED: ONDANSETRON INJ 2 MG/ML 2 ML VIAL IV PRN (18:19)
[2022-10-23] MEDS ORDERED: SODIUM CHLORIDE 0.9% 250 ML IV PRN (18:19)
[2022-10-23] MEDS: Patient's ALLERGY Info needs ENTERED SCH ×2 (18:29→18:34)
[2022-10-23] MEDS ORDERED: PIPERACILLIN/TAZOBACTAM 4.5 GM (over 30 mins) IV ONE (19:00)
[2022-10-23 19:12] LABS: Hematocrit (blood only) 41.6 % (37.0-47.0); Hemoglobin 14.5 g/dl (12.0-16.0)
[2022-10-23] MEDS: ACETAMINOPHEN 1,000 MG/100 ML VIAL IV SCH (19:18)
[2022-10-23] MEDS: LACTATED RINGER'S 1,000 ML IV SCH (19:21)
[2022-10-23] MEDS: AMITRIPTYLINE HCL 50 MG TAB PO SCH (21:05)
[2022-10-23] MEDS: PIPERACILLIN/TAZOBACTAM 4.5 GM in DEXTROSE 5% 100 ML IV SCH (23:47)
[2022-10-24] MEDS: LACTATED RINGER'S 1,000 ML IV SCH ×3 (02:43→14:59)
[2022-10-24] MEDS: ACETAMINOPHEN 1,000 MG/100 ML VIAL IV SCH ×3 (02:46→18:39)
[2022-10-24 06:12] LABS: Basophils # (auto) 0.05 K/uL (0-0.2); Basophils % (auto) 0.4 %; Eosinophils # (auto) 0.22 K/uL (0-0.50); Eosinophils % (auto) 1.6 %; Hemoglobin 12.6 g/dl (12.0-16.0); Immature Granulocytes # (auto) 0.06 K/uL (0.01-0.20); Immature Granulocytes % (auto) 0.4 %; Mean Corpuscular Hemoglobin 30.4 pg (25.0-34.0); Mean Corpuscular Hgb Conc 34.1 g/dL (32.0-36.0); Mean Corpuscular Volume 89.2 fL (80.0-100.0); Mean Platelet Volume 8.4 fL (9.4-12.4); Monocytes # (auto) 1.31 K/uL (0.11-0.59); Monocytes % (auto) 9.4 %; Neutrophils # (auto) 9.57 K/uL (1.40-6.50); Neutrophils % (auto) 68.2 %; Platelet Count 312 K/uL (130-400); RDW Coefficient of Variation 13.2 % (11.5-14.5); RDW Standard Deviation 43.5 fL (36.4-46.3); Red Blood Count 4.15 M/uL (4.20-5.40); White Blood Count 14.01 K/ul (4.8-10.8)
[2022-10-24 06:24] LABS: Albumin Globulin Ratio 1.3 (0.9-2); Albumin Level 3.6 gm/dl (3.4-5.0); BUN Creatinine Ratio 10.3 (10-20); Bilirubin,Total 0.5 mg/dl (0.2-1.0); Calcium 8.8 mg/dl (8.6-10.3); Creatinine Clr Calc Pharmacy 70.9 ml/min; Est GFR (African American) 95.1 ml/min; Est GFR (Non-African American) 82.1 ml/min; Globulin 2.7 gm/dl (2.5-4.0); Magnesium 1.9 mg/dl (1.7-2.4); Potassium 4.5 mmol/L (3.5-5.1); Total Protein 6.3 gm/dl (6.0-8.3)
[2022-10-24] MEDS: CITALOPRAM 40 MG TAB PO SCH (08:04)
[2022-10-24] MEDS: lisinopril 10 MG TAB PO SCH (08:05)
[2022-10-24] MEDS: PIPERACILLIN/TAZOBACTAM 4.5 GM in DEXTROSE 5% 100 ML IV SCH ×3 (08:10→22:55)
--- NOTE | 2022-10-24 08:15 | Gastrointestinal Consultation ---
Date of Consultation October 24, 2022 Assessment & Plan (1) Colitis: Pleasant woman with an acute onset of abdominal pain and bloody stools. I think the two most likely causes are ischemic colitis or acute infectious enteritis with invasive characteristics. Ischemia of the colon does not necessarily lead to a lactic acidosis. She could have just manifested onset of ulcerative colitis or Crohn's disease but that would be a diagnosis made when this doesn't resolve over the next few days and becomes chronic. At this time I would just observe as she seems to be getting better. She is on antibiotics which will cover infectious issue. Do not plan colonoscopy at this point. History of Present Illness Reason for Consultation: rectal bleeding Attending Physician: Alvaro Lowery MD History of Present Illness 62 year old female with 24 hours abdominal cramping pain and passing blood. She doesn't see much stool she mainly sees blood. Initially she says she was going "lots" and now it seems to be slowing down. She has never had anything like this before. She denies fever or chills. She denies nausea or vomiting. She ate chicken the night before this happened that her cooked. She has not been exposed to anyone with similar illness. She doesn't have chronic stomach issues. She says her last colonoscopy was about five years ago at [facility]. CT on admit shows evidence of colitis Allergies Allergy/AdvReac Type Severity Reaction Status Date / Time No Known Drug Allergies AdvReac Unknown Verified 10/23/22 17:44 Home Medications Medication Instructions Recorded Confirmed Type acetaminophen 500 mg tablet 500 mg PO Q6H PRN Pain 10/23/22 10/23/22 History amitriptyline 25 mg tablet 50 mg PO HS headache prevention 10/23/22 10/23/22 History citalopram 40 mg tablet 40 mg PO QAM 10/23/22 10/23/22 History lisinopril 10 mg tablet 10 mg PO QAM 10/23/22 10/23/22 History tizanidine 4 mg tablet 4 mg PO Q8H PRN Muscle Spasm 10/23/22 10/23/22 History triamcinolone acetonide 0.1 % 1 applic topical DAILY rash on 10/23/22 10/23/22 History topical ointment arms/legs Patient History Medical History Chronic headache GERD (gastroesophageal reflux disease) HTN (hypertension) Panic disorder Pulmonary nodule Surgical History Hx of tubal ligation Family History Denies family history of Colorectal cancer Inflammatory bowel disease Social History Smoking Status: Former smoker Tobacco Type: E-cigarettes / Vaping Hx Alcohol Use: Yes Alcohol Intake Frequency: 2-4 x/Month Hx Substance Use: No Preferred Language: Albanian Communication Ability: Effective Pattern Hanger Required: No Beliefs That Will Affect Care: None marital status: Current Living Situation: Spouse Feels Safe at Home: Yes Safety Concerns: Feels Safe At This Time Assistive Devices: Glasses Review of Systems Review of Systems: All systems reviewed & are unremarkable except as noted in HPI & below Physical Exam Constitutional: WD/WN, vitals as above no acute distress Eyes: PERRL, conjunctivae normal, anicteric sclerae ENMT: external ear and nose normal, oropharynx normal Neck: trachea midline, no thyromegaly Respiratory: normal respiratory effort, lungs clear to auscultation Cardiovascular: RRR, no murmur, no edema Gastrointestinal (Abdomen): normal bowel sounds, soft, nontender, no hepatosplenomegaly Musculoskeletal: Extremities: no cyanosis and no clubbing Skin: no rashes, warm and dry Neurologic: PERRL, EOMI, accommodation nl, no face palsy, no dysarthria Psychiatric: Orientation: alert and oriented x 3 Results & Data Vital Signs (Past 12 Hours) Vital Signs Temp Pulse Pulse Resp BP Pulse Ox O2 Del Method 10/24/22 07:57 80 10/24/22 07:38 36.6 C 90 18 117/76 95 Room Air 10/24/22 03:00 36.7 C 89 20 107/74 96 Room Air 10/23/22 23:10 36.7 C 87 20 109/71 96 Room Air Laboratory Results 10/24/22 10/24/22 10/24/22 Range/Units 05:28 05:28 05:28 WBC 14.01 H (4.8-10.8) K/ul RBC 4.15 L (4.20-5.40) M/uL Hgb 12.6 (12.0-16.0) g/dl Hct 37.0 (37.0-47.0) % MCV 89.2 (80.0-100.0) fL MCH 30.4 (25.0-34.0) pg MCHC 34.1 (32.0-36.0) g/dL RDW Std Deviation 43.5 (36.4-46.3) fL RDW Coeff of Irwin 13.2 (11.5-14.5) % Plt Count 312 (130-400) K/uL MPV 8.4 L (9.4-12.4) fL Immature Gran % (Auto) 0.4 % Neut % (Auto) 68.2 % Lymph % (Auto) 20.0 % Traverse % (Auto) 9.4 % Eos % (Auto) 1.6 % Baso % (Auto) 0.4 % Neut # (Auto) 9.57 H (1.40-6.50) K/uL Lymph # (Auto) 2.80 (1.2-3.4) K/uL Traverse # (Auto) 1.31 H (0.11-0.59) K/uL Eos # (Auto) 0.22 (0-0.50) K/uL Baso # (Auto) 0.05 (0-0.2) K/uL Immature Gran # (Auto) 0.06 (0.01-0.20) K/uL Sodium 138 (136-145) mmol/L Potassium 4.5 (3.5-5.1) mmol/L Chloride 106 (98-107) mmol/L Carbon Dioxide 26 (21-32) mmol/L Anion Gap 6 (3-11) BUN 8 (6-23) mg/dl Creatinine 0.78 (0.6-1.2) mg/dl Est Cr Clr Drug Dosing 70.9 ml/min Est GFR ( Amer) 95.1 ml/min Est GFR (Non-Af Amer) 82.1 ml/min BUN/Creatinine Ratio 10.3 (10-20) Glucose 117 H (70-99(Fasting)) mg/dl Estimat Average Glucose Pending Hemoglobin A1c Pending Lactate (0.4-2.0) mmol/L Calcium 8.8 (8.6-10.3) mg/dl Magnesium 1.9 (1.7-2.4) mg/dl Total Bilirubin 0.5 (0.2-1.0) mg/dl AST 26 (13-39) U/L ALT 26 (7-52) U/L Alkaline Phosphatase 60 (34-104) U/L Total Protein 6.3 (6.0-8.3) gm/dl Albumin 3.6 (3.4-5.0) gm/dl Globulin 2.7 (2.5-4.0) gm/dl Albumin/Globulin Ratio 1.3 (0.9-2) Lipase (11-82) U/L Procalcitonin (0-0.5) ng/ml Urine Color Urine Appearance (Clear) Urine pH (4.5-7.5) Ur Specific [place] (1.000-1.030) Urine Protein (Negative) Urine Glucose (UA) (Negative) Urine Ketones (Negative) Urine Blood (Negative) Urine Nitrite (Negative) Urine Bilirubin (Negative) Urine Urobilinogen (Negative) Ur Leukocyte Esterase (Negative) Urine WBC (Auto) (0-5) /hpf Urine RBC (Auto) (0-4) /hpf U Hyaline Cast (Auto) (0-5) /lpf U Epithel Cells (Auto) (0-5) /lpf Urine Bacteria (Auto) (Negative) SARS-CoV-2 (PCR) (Negative) Influenza Type A (PCR) (Neg) Influenza Type B (PCR) (Neg) RSV (RT-PCR) (Neg) Blood Type Blood Type Recheck Antibody Screen Crossmatch 10/23/22 10/23/22 10/23/22 Range/Units 18:55 18:52 18:52 WBC (4.8-10.8) K/ul RBC (4.20-5.40) M/uL Hgb 14.5 (12.0-16.0) g/dl Hct 41.6 (37.0-47.0) % MCV (80.0-100.0) fL MCH (25.0-34.0) pg MCHC (32.0-36.0) g/dL RDW Std Deviation (36.4-46.3) fL RDW Coeff of Irwin (11.5-14.5) % Plt Count (130-400) K/uL MPV (9.4-12.4) fL Immature Gran % (Auto) % Neut % (Auto) % Lymph % (Auto) % Traverse % (Auto) % Eos % (Auto) % Baso % (Auto) % Neut # (Auto) (1.40-6.50) K/uL Lymph # (Auto) (1.2-3.4) K/uL Traverse # (Auto) (0.11-0.59) K/uL Eos # (Auto) (0-0.50) K/uL Baso # (Auto) (0-0.2) K/uL Immature Gran # (Auto) (0.01-0.20) K/uL Sodium (136-145) mmol/L Potassium (3.5-5.1) mmol/L Chloride (98-107) mmol/L Carbon Dioxide (21-32) mmol/L Anion Gap (3-11) BUN (6-23) mg/dl Creatinine (0.6-1.2) mg/dl Est Cr Clr Drug Dosing ml/min Est GFR ( Amer) ml/min Est GFR (Non-Af Amer) ml/min BUN/Creatinine Ratio (10-20) Glucose (70-99(Fasting)) mg/dl Estimat Average Glucose Hemoglobin A1c Lactate 1.9 (0.4-2.0) mmol/L Calcium (8.6-10.3) mg/dl Magnesium (1.7-2.4) mg/dl Total Bilirubin (0.2-1.0) mg/dl AST (13-39) U/L ALT (7-52) U/L Alkaline Phosphatase (34-104) U/L Total Protein (6.0-8.3) gm/dl Albumin (3.4-5.0) gm/dl Globulin (2.5-4.0) gm/dl Albumin/Globulin Ratio (0.9-2) Lipase (11-82) U/L Procalcitonin (0-0.5) ng/ml Urine Color Urine Appearance (Clear) Urine pH (4.5-7.5) Ur Specific [place] (1.000-1.030) Urine Protein (Negative) Urine Glucose (UA) (Negative) Urine Ketones (Negative) Urine Blood (Negative) Urine Nitrite (Negative) Urine Bilirubin (Negative) Urine Urobilinogen (Negative) Ur Leukocyte Esterase (Negative) Urine WBC (Auto) (0-5) /hpf Urine RBC (Auto) (0-4) /hpf U Hyaline Cast (Auto) (0-5) /lpf U Epithel Cells (Auto) (0-5) /lpf Urine Bacteria (Auto) (Negative) SARS-CoV-2 (PCR) (Negative) Influenza Type A (PCR) (Neg) Influenza Type B (PCR) (Neg) RSV (RT-PCR) (Neg) Blood Type Blood Type Recheck O Positive Antibody Screen Crossmatch 10/23/22 10/23/22 10/23/22 Range/Units 18:52 16:07 15:06 WBC (4.8-10.8) K/ul RBC (4.20-5.40) M/uL Hgb (12.0-16.0) g/dl Hct (37.0-47.0) % MCV (80.0-100.0) fL MCH (25.0-34.0) pg MCHC (32.0-36.0) g/dL RDW Std Deviation (36.4-46.3) fL RDW Coeff of Irwin (11.5-14.5) % Plt Count (130-400) K/uL MPV (9.4-12.4) fL Immature Gran % (Auto) % Neut % (Auto) % Lymph % (Auto) % Traverse % (Auto) % Eos % (Auto) % Baso % (Auto) % Neut # (Auto) (1.40-6.50) K/uL Lymph # (Auto) (1.2-3.4) K/uL Traverse # (Auto) (0.11-0.59) K/uL Eos # (Auto) (0-0.50) K/uL Baso # (Auto) (0-0.2) K/uL Immature Gran # (Auto) (0.01-0.20) K/uL Sodium (136-145) mmol/L Potassium (3.5-5.1) mmol/L Chloride (98-107) mmol/L Carbon Dioxide (21-32) mmol/L Anion Gap (3-11) BUN (6-23) mg/dl Creatinine (0.6-1.2) mg/dl Est Cr Clr Drug Dosing ml/min Est GFR ( Amer) ml/min Est GFR (Non-Af Amer) ml/min BUN/Creatinine Ratio (10-20) Glucose (70-99(Fasting)) mg/dl Estimat Average Glucose Hemoglobin A1c Lactate (0.4-2.0) mmol/L Calcium (8.6-10.3) mg/dl Magnesium (1.7-2.4) mg/dl Total Bilirubin (0.2-1.0) mg/dl AST (13-39) U/L ALT (7-52) U/L Alkaline Phosphatase (34-104) U/L Total Protein (6.0-8.3) gm/dl Albumin (3.4-5.0) gm/dl Globulin (2.5-4.0) gm/dl Albumin/Globulin Ratio (0.9-2) Lipase (11-82) U/L Procalcitonin 0.13 (0-0.5) ng/ml Urine Color Urine Appearance (Clear) Urine pH (4.5-7.5) Ur Specific [place] (1.000-1.030) Urine Protein (Negative) Urine Glucose (UA) (Negative) Urine Ketones (Negative) Urine Blood (Negative) Urine Nitrite (Negative) Urine Bilirubin (Negative) Urine Urobilinogen (Negative) Ur Leukocyte Esterase (Negative) Urine WBC (Auto) (0-5) /hpf Urine RBC (Auto) (0-4) /hpf U Hyaline Cast (Auto) (0-5) /lpf U Epithel Cells (Auto) (0-5) /lpf Urine Bacteria (Auto) (Negative) SARS-CoV-2 (PCR) NEGATIVE (Negative) Influenza Type A (PCR) Negative (Neg) Influenza Type B (PCR) Negative (Neg) RSV (RT-PCR) Negative (Neg) Blood Type O Positive Blood Type Recheck Antibody Screen NEGATIVE Crossmatch See Detail 10/23/22 10/23/22 10/23/22 Range/Units 15:06 14:44 12:22 WBC (4.8-10.8) K/ul RBC (4.20-5.40) M/uL Hgb (12.0-16.0) g/dl Hct (37.0-47.0) % MCV (80.0-100.0) fL MCH (25.0-34.0) pg MCHC (32.0-36.0) g/dL RDW Std Deviation (36.4-46.3) fL RDW Coeff of Irwin (11.5-14.5) % Plt Count (130-400) K/uL MPV (9.4-12.4) fL Immature Gran % (Auto) % Neut % (Auto) % Lymph % (Auto) % Traverse % (Auto) % Eos % (Auto) % Baso % (Auto) % Neut # (Auto) (1.40-6.50) K/uL Lymph # (Auto) (1.2-3.4) K/uL Traverse # (Auto) (0.11-0.59) K/uL Eos # (Auto) (0-0.50) K/uL Baso # (Auto) (0-0.2) K/uL Immature Gran # (Auto) (0.01-0.20) K/uL Sodium 137 (136-145) mmol/L Potassium 3.9 (3.5-5.1) mmol/L Chloride 102 (98-107) mmol/L Carbon Dioxide 26 (21-32) mmol/L Anion Gap 9 (3-11) BUN 13 (6-23) mg/dl Creatinine 0.71 (0.6-1.2) mg/dl Est Cr Clr Drug Dosing 77.9 ml/min Est GFR ( Amer) 106.5 ml/min Est GFR (Non-Af Amer) 91.9 ml/min BUN/Creatinine Ratio 18.3 (10-20) Glucose 110 H (70-99(Fasting)) mg/dl Estimat Average Glucose Hemoglobin A1c Lactate 1.5 (0.4-2.0) mmol/L Calcium 10.1 (8.6-10.3) mg/dl Magnesium (1.7-2.4) mg/dl Total Bilirubin 0.4 (0.2-1.0) mg/dl AST 24 (13-39) U/L ALT 21 (7-52) U/L Alkaline Phosphatase 78 (34-104) U/L Total Protein 7.7 (6.0-8.3) gm/dl Albumin 4.6 (3.4-5.0) gm/dl Globulin 3.1 (2.5-4.0) gm/dl Albumin/Globulin Ratio 1.5 (0.9-2) Lipase 14 (11-82) U/L Procalcitonin (0-0.5) ng/ml Urine Color Yellow Urine Appearance Clear (Clear) Urine pH 7.5 (4.5-7.5) Ur Specific [place] 1.031 H (1.000-1.030) Urine Protein Negative (Negative) Urine Glucose (UA) Negative (Negative) Urine Ketones Negative (Negative) Urine Blood Trace H (Negative) Urine Nitrite Negative (Negative) Urine Bilirubin Negative (Negative) Urine Urobilinogen Negative (Negative) Ur Leukocyte Esterase 1+ H (Negative) Urine WBC (Auto) 1-5 (0-5) /hpf Urine RBC (Auto) 0-4 (0-4) /hpf U Hyaline Cast (Auto) 1-5 (0-5) /lpf U Epithel Cells (Auto) >30 H (0-5) /lpf Urine Bacteria (Auto) Negative (Negative) SARS-CoV-2 (PCR) (Negative) Influenza Type A (PCR) (Neg) Influenza Type B (PCR) (Neg) RSV (RT-PCR) (Neg) Blood Type Blood Type Recheck Antibody Screen Crossmatch 10/23/22 Range/Units 12:22 WBC 19.21 H (4.8-10.8) K/ul RBC 4.46 (4.20-5.40) M/uL Hgb 13.7 (12.0-16.0) g/dl Hct 39.2 (37.0-47.0) % MCV 87.9 (80.0-100.0) fL MCH 30.7 (25.0-34.0) pg MCHC 34.9 (32.0-36.0) g/dL RDW Std Deviation 41.7 (36.4-46.3) fL RDW Coeff of Irwin 13.0 (11.5-14.5) % Plt Count 352 (130-400) K/uL MPV 8.4 L (9.4-12.4) fL Immature Gran % (Auto) 0.5 % Neut % (Auto) 80.8 % Lymph % (Auto) 8.9 % Traverse % (Auto) 9.2 % Eos % (Auto) 0.2 % Baso % (Auto) 0.4 % Neut # (Auto) 15.53 H (1.40-6.50) K/uL Lymph # (Auto) 1.71 (1.2-3.4) K/uL Traverse # (Auto) 1.77 H (0.11-0.59) K/uL Eos # (Auto) 0.03 (0-0.50) K/uL Baso # (Auto) 0.07 (0-0.2) K/uL Immature Gran # (Auto) 0.10 (0.01-0.20) K/uL Sodium (136-145) mmol/L Potassium (3.5-5.1) mmol/L Chloride (98-107) mmol/L Carbon Dioxide (21-32) mmol/L Anion Gap (3-11) BUN (6-23) mg/dl Creatinine (0.6-1.2) mg/dl Est Cr Clr Drug Dosing ml/min Est GFR ( Amer) ml/min Est GFR (Non-Af Amer) ml/min BUN/Creatinine Ratio (10-20) Glucose (70-99(Fasting)) mg/dl Estimat Average Glucose Hemoglobin A1c Lactate (0.4-2.0) mmol/L Calcium (8.6-10.3) mg/dl Magnesium (1.7-2.4) mg/dl Total Bilirubin (0.2-1.0) mg/dl AST (13-39) U/L ALT (7-52) U/L Alkaline Phosphatase (34-104) U/L Total Protein (6.0-8.3) gm/dl Albumin (3.4-5.0) gm/dl Globulin (2.5-4.0) gm/dl Albumin/Globulin Ratio (0.9-2) Lipase (11-82) U/L Procalcitonin (0-0.5) ng/ml Urine Color Urine Appearance (Clear) Urine pH (4.5-7.5) Ur Specific [place] (1.000-1.030) Urine Protein (Negative) Urine Glucose (UA) (Negative) Urine Ketones (Negative) Urine Blood (Negative) Urine Nitrite (Negative) Urine Bilirubin (Negative) Urine Urobilinogen (Negative) Ur Leukocyte Esterase (Negative) Urine WBC (Auto) (0-5) /hpf Urine RBC (Auto) (0-4) /hpf U Hyaline Cast (Auto) (0-5) /lpf U Epithel Cells (Auto) (0-5) /lpf Urine Bacteria (Auto) (Negative) SARS-CoV-2 (PCR) (Negative) Influenza Type A (PCR) (Neg) Influenza Type B (PCR) (Neg) RSV (RT-PCR) (Neg) Blood Type Blood Type Recheck Antibody Screen Crossmatch Diagnostic Findings Chest X-Ray 10/23/22 11:34 XR chest 2V PA/lateral CLINICAL HISTORY: abd pain TECHNIQUE: 2 views of the chest were obtained. Comparison: None available at the time of this dictation. FINDINGS: No lines and tubes are seen. The cardiomediastinal silhouette is normal. The lungs are clear. No evidence of pleural effusion or pneumothorax. IMPRESSION: No acute chest disease. ACT 112: Negative or not required by law. Electronically signed by: Deshawn Paulino M.D. 10/23/2022 12:05 PM Abdomen/Pelvis CT 10/23/22 12:50 CT OF THE ABDOMEN AND PELVIS WITH CONTRAST CLINICAL HISTORY: Abdominal pain. GI bleed. COMPARISON STUDY: None. TECHNIQUE: Following IV administration of 91 mL of Optiray, axial images of the abdomen and pelvis were obtained from the lung bases to the proximal femurs. Images were reviewed in the axial, sagittal, and coronal planes. IV contrast was administered without complication. Automated exposure control was utilized for the study. A dose lowering technique was utilized adhering to the principles of ALARA. CT DOSE: 930.33 mGy.cm FINDINGS: Lung bases are unremarkable. No pneumatosis stenosis, free air or portal venous gas is present. There are no hepatic lesions. There is no biliary or pancreatic ductal dilatation. The spleen, adrenal glands and kidneys are unremarkable. There is no hydronephrosis. There is no evidence for a bowel obstruction. The appendix is normal. Note is made of moderate wall thickening of the distal transverse colon, the splenic flexure of the colon and the proximal to mid descending colon. There is associated pericolonic stranding and a small amount of fluid. No abscess is present. No lymphadenopathy is present. There is moderate plaque of the abdominal aorta. The proximal mesenteric vessels are patent. IMPRESSION: Moderate wall thickening with associated pericolonic stranding and fluid involving the distal transverse colon, the splenic flexure and the proximal to mid descending colon. This represents a colitis. Although nonspecific, this distribution raises the possibility of ischemic colitis. No abscess. No free air. ACT 112: Negative or not required by law. Electronically signed by: John Figueroa M.D. 10/23/2022 2:10 PM
--- NOTE | 2022-10-24 15:38 | Hospitalist Progress Note ---
Date of Service October 24, 2022 Assessment & Plan (1) Colitis: (2) Acute GI bleeding: (3) Abdominal pain: (4) Leukocytosis: Plan 62-year-old female who has a significant past medical history of HTN, chronic migraine, chronic daily headache, panic disorder, GERD who presents to ED 10/23 secondary to abdominal pain and bloody diarrhea x1 day. Colitis: likely infectious etiology as LA nl. Acute GI bleeding, likely lower GI Abdominal pain Leukocytosis c/w PCU in setting of GI bleeding Current hemoglobin stable c/w LR and npo. hold off on PPI. c/w zosyn 10/23. WBC trending down, pt afebrile. Monitor HnH and transfuse if Hb<7 or for symptomatic anemia GI on board, appreciate recs. Migraine GOTTLIEB, chronic continue elavil, prn tizanadine HTN bp elevated in ED, likely 2/2 pain continue lisinopril, better controlled now. Panic disorder continue cymbalta DVT ppx: SCDs 2/2 GI Bleeding FULL CODE PCP: Dr. Laureano Whitaker Admission and Anticipated Discharge Date Admission Date: October 23, 2022 Subjective Patient seen and examined at bedside as a follow-up of likely lower GI bleeding and colitis. Patient was sitting up in chair, on room air, NAD, reports no new acute event overnight, reports BRBPR today morning as well, reports improvement in her belly pain, no tenderness on exam, is n.p.o., continue with IV fluid, denies headache or dizziness or chest pain or belly pain. Physical Exam Physical Exam: GENERAL: Alert and oriented x3. NAD, on RA. HEENT: No pallor, no icterus. Pupils equal, round and reactive to light. Oral mucosa moist. NECK: No JVD, no neck masses. HEART: S1 and S2 heard. Regular rate and rhythm. No murmur, no gallop. RESPIRATORY SYSTEM: Normal AP diameter. No accessory muscle use. No wheezing, no crackles. ABDOMEN: Soft, bowel sounds present, nontender, no distention. CENTRAL NERVOUS SYSTEM: No facial droop. Speech is clear. Obeys simple commands. Moves extremities. EXTREMITIES: No edema, no erythema seen. Results & Data Results & Data Vital Signs (Past 12 Hours) Vital Signs Temp Pulse Pulse Resp BP Pulse Ox O2 Del Method 10/24/22 15:03 36.8 C 70 14 102/63 97 Room Air 10/24/22 11:06 36.8 C 87 16 114/74 96 Room Air 10/24/22 07:57 80 10/24/22 07:38 36.6 C 90 18 117/76 95 Room Air
[2022-10-24 19:55] LABS: Hematocrit (blood only) 34.1 % (37.0-47.0)
[2022-10-24] MEDS: AMITRIPTYLINE HCL 50 MG TAB PO SCH (19:55)
[2022-10-25] MEDS: LACTATED RINGER'S 1,000 ML IV SCH ×3 (00:05→16:48)
[2022-10-25] MEDS: ACETAMINOPHEN 1,000 MG/100 ML VIAL IV SCH ×3 (03:13→19:29)
[2022-10-25 06:14] LABS: Hematocrit (blood only) 34.6 % (37.0-47.0); Hemoglobin 11.6 g/dl (12.0-16.0); Mean Corpuscular Hemoglobin 30.5 pg (25.0-34.0); Mean Corpuscular Hgb Conc 33.5 g/dL (32.0-36.0); Mean Corpuscular Volume 91.1 fL (80.0-100.0); Mean Platelet Volume 8.4 fL (9.4-12.4); Platelet Count 294 K/uL (130-400); RDW Coefficient of Variation 13.2 % (11.5-14.5); RDW Standard Deviation 44.2 fL (36.4-46.3); White Blood Count 11.41 K/ul (4.8-10.8)
[2022-10-25 06:34] LABS: BUN Creatinine Ratio 8.4 (10-20); Calcium 8.9 mg/dl (8.6-10.3); Creatinine Clr Calc Pharmacy 66.6 ml/min; Est GFR (African American) 88.2 ml/min; Est GFR (Non-African American) 76.1 ml/min
[2022-10-25] MEDS: CITALOPRAM 40 MG TAB PO SCH (08:44)
[2022-10-25] MEDS: PIPERACILLIN/TAZOBACTAM 4.5 GM in DEXTROSE 5% 100 ML IV SCH ×2 (08:44→16:30)
[2022-10-25] MEDS: lisinopril 10 MG TAB PO SCH (08:44)
[2022-10-25 09:42] LABS: Estimated Average Glucose 123 mg/dl; Hemoglobin A1C 5.9 % (4.5-5.6)
--- NOTE | 2022-10-25 09:48 | Gastroenterology Progress Note ---
Date of Service October 25, 2022 Assessment & Plan (1) Colitis: Plan 62 year old female with history of HTN, chronic migraine, chronic daily headache, panic disorder, GERD admitted w/ abd cramping, diarrhea w/ rectal bleeding CT w/ moderate wall thickening at the transverse, splenic and descending colon. Clinically improving, infectious vs ischemic colitis Submit stool studies Advance diet as tolerated Continue ABX therapy for full course OP colonoscopy Will sign off. Recall as needed. Thank you for allowing us to participate in the care of this patient. Please call with any acute changes, questions or concerns. Please see addendum below with additional recommendation from my supervising physician. Admission and Anticipated Discharge Date Admission Date: October 23, 2022 Supervising Physician Co-Signing Physician Notes I have seen and examined the patient with RUBI Garcia whose note reflects our findings and plan. Abd exam is benign. Imaging reviewed. Suspicious for ischemic colitis vs infectious. Stool studies ot be done. Outpatient colo to be arranged. please call with questions. Subjective Pt was seen and evaluated, chart reviewed. Feeling well. No abd. No nausea, vomiting. No BM in 24 hours. Last BM was just blood, yesterday. No fever, chills, CP, SOB. HGB 13.7 --> 14.5 --> 12.6 --> 12 --> 11.6 BUN 7 CTAP 2022: Moderate wall thickening with associated pericolonic stranding and fluid involving the distal transverse colon, the splenic flexure and the proximal to mid descending colon. This represents a colitis. Although nonspecific, this distribution raises the possibility of ischemic colitis. No abscess. No free air. Review of Systems Review of Systems: All systems reviewed & are unremarkable except as noted in HPI & below Physical Exam Constitutional: WD/WN, vitals as above Respiratory: normal respiratory effort, lungs clear to auscultation Cardiovascular: Rate/Rhythm: regular rate and regular rhythm Gastrointestinal (Abdomen): normal bowel sounds, soft, nontender, no hepatosplenomegaly Skin: no rashes, warm and dry Results & Data Vital Signs (Past 12 Hours) Vital Signs Temp Pulse Pulse Resp BP Pulse Ox O2 Del Method 10/25/22 07:21 36.5 C 78 18 133/87 96 Room Air 10/25/22 07:57 72 10/25/22 03:24 36.4 C L 75 16 112/74 96 Room Air 10/24/22 23:01 36.6 C 77 16 109/59 L 96 Room Air Laboratory Results 10/25/22 10/25/22 10/24/22 Range/Units 05:33 05:33 19:21 WBC 11.41 H (4.8-10.8) K/ul RBC 3.80 L (4.20-5.40) M/uL Hgb 11.6 L 12.0 (12.0-16.0) g/dl Hct 34.6 L 34.1 L (37.0-47.0) % MCV 91.1 (80.0-100.0) fL MCH 30.5 (25.0-34.0) pg MCHC 33.5 (32.0-36.0) g/dL RDW Std Deviation 44.2 (36.4-46.3) fL RDW Coeff of Iwrin 13.2 (11.5-14.5) % Plt Count 294 (130-400) K/uL MPV 8.4 L (9.4-12.4) fL Sodium 140 (136-145) mmol/L Potassium 4.0 (3.5-5.1) mmol/L Chloride 107 (98-107) mmol/L Carbon Dioxide 28 (21-32) mmol/L Anion Gap 5 (3-11) BUN 7 (6-23) mg/dl Creatinine 0.83 (0.6-1.2) mg/dl Est Cr Clr Drug Dosing 66.6 ml/min Est GFR ( Amer) 88.2 ml/min Est GFR (Non-Af Amer) 76.1 ml/min BUN/Creatinine Ratio 8.4 L (10-20) Glucose 84 (70-99(Fasting)) mg/dl Estimat Average Glucose mg/dl Hemoglobin A1c (4.5-5.6) % Calcium 8.9 (8.6-10.3) mg/dl 10/24/22 Range/Units 05:28 WBC (4.8-10.8) K/ul RBC (4.20-5.40) M/uL Hgb (12.0-16.0) g/dl Hct (37.0-47.0) % MCV (80.0-100.0) fL MCH (25.0-34.0) pg MCHC (32.0-36.0) g/dL RDW Std Deviation (36.4-46.3) fL RDW Coeff of Irwin (11.5-14.5) % Plt Count (130-400) K/uL MPV (9.4-12.4) fL Sodium (136-145) mmol/L Potassium (3.5-5.1) mmol/L Chloride (98-107) mmol/L Carbon Dioxide (21-32) mmol/L Anion Gap (3-11) BUN (6-23) mg/dl Creatinine (0.6-1.2) mg/dl Est Cr Clr Drug Dosing ml/min Est GFR ( Amer) ml/min Est GFR (Non-Af Amer) ml/min BUN/Creatinine Ratio (10-20) Glucose (70-99(Fasting)) mg/dl Estimat Average Glucose 123 mg/dl Hemoglobin A1c 5.9 H (4.5-5.6) % Calcium (8.6-10.3) mg/dl Diagnostic Findings 10/25/22 10/25/22 10/24/22 Range/Units 05:33 05:33 19:21 WBC 11.41 H (4.8-10.8) K/ul RBC 3.80 L (4.20-5.40) M/uL Hgb 11.6 L 12.0 (12.0-16.0) g/dl Hct 34.6 L 34.1 L (37.0-47.0) % MCV 91.1 (80.0-100.0) fL MCH 30.5 (25.0-34.0) pg MCHC 33.5 (32.0-36.0) g/dL RDW Std Deviation 44.2 (36.4-46.3) fL RDW Coeff of Irwin 13.2 (11.5-14.5) % Plt Count 294 (130-400) K/uL MPV 8.4 L (9.4-12.4) fL Sodium 140 (136-145) mmol/L Potassium 4.0 (3.5-5.1) mmol/L Chloride 107 (98-107) mmol/L Carbon Dioxide 28 (21-32) mmol/L Anion Gap 5 (3-11) BUN 7 (6-23) mg/dl Creatinine 0.83 (0.6-1.2) mg/dl Est Cr Clr Drug Dosing 66.6 ml/min Est GFR ( Amer) 88.2 ml/min Est GFR (Non-Af Amer) 76.1 ml/min BUN/Creatinine Ratio 8.4 L (10-20) Glucose 84 (70-99(Fasting)) mg/dl Estimat Average Glucose mg/dl Hemoglobin A1c (4.5-5.6) % Calcium 8.9 (8.6-10.3) mg/dl 10/24/22 Range/Units 05:28 WBC (4.8-10.8) K/ul RBC (4.20-5.40) M/uL Hgb (12.0-16.0) g/dl Hct (37.0-47.0) % MCV (80.0-100.0) fL MCH (25.0-34.0) pg MCHC (32.0-36.0) g/dL RDW Std Deviation (36.4-46.3) fL RDW Coeff of Irwin (11.5-14.5) % Plt Count (130-400) K/uL MPV (9.4-12.4) fL Sodium (136-145) mmol/L Potassium (3.5-5.1) mmol/L Chloride (98-107) mmol/L Carbon Dioxide (21-32) mmol/L Anion Gap (3-11) BUN (6-23) mg/dl Creatinine (0.6-1.2) mg/dl Est Cr Clr Drug Dosing ml/min Est GFR ( Amer) ml/min Est GFR (Non-Af Amer) ml/min BUN/Creatinine Ratio (10-20) Glucose (70-99(Fasting)) mg/dl Estimat Average Glucose 123 mg/dl Hemoglobin A1c 5.9 H (4.5-5.6) % Calcium (8.6-10.3) mg/dl
--- NOTE | 2022-10-25 18:05 | Hospitalist Progress Note ---
Date of Service October 25, 2022 Assessment & Plan (1) Colitis: (2) Acute GI bleeding: (3) Abdominal pain: (4) Leukocytosis: Plan 62-year-old female who has a significant past medical history of HTN, chronic migraine, chronic daily headache, panic disorder, GERD who presents to ED 10/23 secondary to abdominal pain and bloody diarrhea x1 day. Colitis: likely infectious etiology as LA nl. Acute GI bleeding, likely lower GI Abdominal pain Leukocytosis c/w PCU in setting of GI bleeding Current hemoglobin stable c/w LR and npo. hold off on PPI. c/w zosyn 10/23. WBC trending down, pt afebrile. Monitor HnH and transfuse if Hb<7 or for symptomatic anemia Clinically much better without any abdominal symptoms and no more diarrhea and or bleeding per rectum Hemoglobin remains stable at 11.6 Appreciate GI input and recommendation We will have outpatient colonoscopy Started on diet Hemoglobin remains stable without any other symptoms she will be discharged home tomorrow Migraine GOTTLIEB, chronic continue elavil, prn tizanadine No acute symptom HTN bp elevated in ED, likely 2/2 pain continue lisinopril, better controlled now. Panic disorder continue cymbalta DVT ppx: SCDs 2/2 GI Bleeding FULL CODE PCP: Dr. Laureano Whitaker Likely discharge tomorrow Admission and Anticipated Discharge Date Admission Date: October 23, 2022 Subjective 10/25/2022 The patient was seen and examined in telemetry unit She has been feeling much better and denies any more abdominal pain, nausea or vomiting Did not have any more bleeding since admission Review of Systems Review of Systems: All systems reviewed and are unremarkable except as noted below Physical Exam Physical Exam: Lying in bed comfortably Constitutional: well developed, well nourished and average body habitus; not ill appearing Eyes: PERRL, conjunctivae normal, anicteric sclerae ENMT: external ear and nose normal, oropharynx normal Neck: trachea midline, no thyromegaly Respiratory: no respiratory distress Auscultation: lungs clear to auscultation bilaterally Cardiovascular: Rate/Rhythm: regular rate and regular rhythm; not tachycardic Heart Sounds: normal S1 and normal S2; no murmur Extremities: no edema Gastrointestinal (Abdomen): Inspection/Auscultation: normal bowel sounds; abdomen not distended Percussion/Palpation: abdomen soft; abdomen nontender Musculoskeletal: No acute arthritis involving any joint Neurologic: normal touch/pain/proprioception and moves all extremities; no focal motor deficits Psychiatric: A+Ox3, euthymic affect Lymphatic: no cervical or axillary lymphadenopathy Results & Data Results & Data Vital Signs (Past 12 Hours) Vital Signs Temp Pulse Pulse Resp BP Pulse Ox O2 Del Method 10/25/22 16:16 73 10/25/22 15:52 36.5 C 80 20 138/76 96 Room Air 10/25/22 10:47 36.5 C 75 18 136/88 95 Room Air 10/25/22 07:21 36.5 C 78 18 133/87 96 Room Air 10/25/22 07:57 72 Laboratory Results Short CBC 10/24/22 10/25/22 Range/Units 19:21 05:33 WBC 11.41 H (4.8-10.8) K/ul Hgb 12.0 11.6 L (12.0-16.0) g/dl Hct 34.1 L 34.6 L (37.0-47.0) % Plt Count 294 (130-400) K/uL [facility] 10/25/22 05:33 Sodium 140 Potassium 4.0 Chloride 107 Carbon Dioxide 28 BUN 7 Creatinine 0.83 Glucose 84 Calcium 8.9 Medications Administered Current Inpatient Medications Acetaminophen (Acetaminophen 325 Mg Tab) 650 mg PO Q4H PRN PRN Reason: Pain or Fever Stop: 11/22/22 18:18 Amitriptyline HCl (Amitriptyline Hcl 50 Mg Tab) 50 mg PO HS [facility] Stop: 11/22/22 20:59 Last Admin: 10/24/22 19:55 Dose: 50 mg Citalopram Hydrobromide (Citalopram 40 Mg Tab) 40 mg PO QAM [facility] Stop: 11/23/22 08:59 Last Admin: 10/25/22 08:44 Dose: 40 mg Piperacillin Sod/Tazobactam (Sod 4.5 gm/ Dextrose) 120 mls @ 30 mls/hr IV Q8H [facility]; Protocol Stop: 11/02/22 00:00 Last Admin: 10/25/22 16:30 Dose: 30 mls/hr Acetaminophen (Ofirmev) 1,000 mg in 100 mls @ 400 mls/hr IV Q8H [facility] Stop: 10/26/22 18:59 Last Infusion: 10/25/22 11:06 Dose: Infused Lactated Ringer's (Lr) 1,000 mls @ 125 mls/hr IV .Q8H [facility] Stop: 11/22/22 18:18 Last Admin: 10/25/22 16:48 Dose: 125 mls/hr Lisinopril (Lisinopril 10 Mg Tab) 10 mg PO QAM [facility] Stop: 11/23/22 08:59 Last Admin: 10/25/22 08:44 Dose: 10 mg Morphine Sulfate (Morphine Sulfate 4 Mg/Ml 1 Ml Carp\Vial) 4 mg IV Q3H PRN PRN Reason: Pain (6,7,8,9,10) Stop: 11/06/22 18:18 Morphine Sulfate (Morphine Sulfate 2 Mg/Ml Carp) 2 mg IV Q3H PRN PRN Reason: Pain (1,2,3,4,5) & Pre PT Stop: 11/06/22 18:18 Ondansetron HCl (Ondansetron Inj 2 Mg/Ml 2 Ml Vial) 4 mg IV Q6H PRN PRN Reason: Nausea Stop: 11/22/22 18:18 Tizanidine HCl (Tizanidine Hcl 4 Mg Tablet) 4 mg PO Q8H PRN PRN Reason: Muscle Spasm Stop: 11/22/22 18:18
[2022-10-25] MEDS: AMITRIPTYLINE HCL 50 MG TAB PO SCH (20:13)
[2022-10-26] MEDS: LACTATED RINGER'S 1,000 ML IV SCH ×2 (00:52→08:56)
[2022-10-26] MEDS: PIPERACILLIN/TAZOBACTAM 4.5 GM in DEXTROSE 5% 100 ML IV SCH ×2 (00:55→08:54)
[2022-10-26 03:18] LABS: Adenovirus F 40/41 PCR Not Detected (NotDetected); Astrovirus PCR Not Detected (NotDetected); Campylobacter PCR Not Detected (NotDetected); Cryptosporidium PCR Not Detected (NotDetected); Cyclospora cayetanensis PCR Not Detected (NotDetected); Entamoeba histolytica PCR Not Detected (NotDetected); Enteroaggregative E.coli(EAEC) Not Detected (NotDetected); Enteropathogenic E.coli (EPEC) Not Detected (NotDetected); Enterotoxigenic E.coli (ETEC) Not Detected (NotDetected); Giardia lamblia PCR Not Detected (NotDetected); Norovirus GI/GII PCR Not Detected (NotDetected); Plesiomonas shigelloides PCR Not Detected (NotDetected); Rotavirus A PCR Not Detected (NotDetected); Salmonella PCR Not Detected (NotDetected); Sapovirus PCR Not Detected (NotDetected); Shiga-like Toxin E.coli (STEC) Not Detected (NotDetected); Shigella/Enteroinvasive E.coli Not Detected (NotDetected); Vibrio cholerae PCR Not Detected (NotDetected); Vibrio species PCR Not Detected (NotDetected); Yersinia enterocolitica PCR Not Detected (NotDetected)
[2022-10-26] MEDS: ACETAMINOPHEN 1,000 MG/100 ML VIAL IV SCH ×2 (03:23→11:08)
[2022-10-26 06:22] LABS: Basophils # (auto) 0.05 K/uL (0-0.2); Basophils % (auto) 0.5 %; Eosinophils # (auto) 0.22 K/uL (0-0.50); Eosinophils % (auto) 2.2 %; Hematocrit (blood only) 32.9 % (37.0-47.0); Hemoglobin 11.3 g/dl (12.0-16.0); Immature Granulocytes # (auto) 0.03 K/uL (0.01-0.20); Immature Granulocytes % (auto) 0.3 %; Lymphocytes # (auto) 2.72 K/uL (1.2-3.4); Mean Corpuscular Hemoglobin 30.5 pg (25.0-34.0); Mean Corpuscular Hgb Conc 34.3 g/dL (32.0-36.0); Mean Corpuscular Volume 88.9 fL (80.0-100.0); Mean Platelet Volume 8.6 fL (9.4-12.4); Monocytes # (auto) 0.83 K/uL (0.11-0.59); Monocytes % (auto) 8.2 %; Neutrophils # (auto) 6.22 K/uL (1.40-6.50); Neutrophils % (auto) 61.8 %; Platelet Count 311 K/uL (130-400); RDW Coefficient of Variation 12.6 % (11.5-14.5); RDW Standard Deviation 41.3 fL (36.4-46.3); White Blood Count 10.07 K/ul (4.8-10.8)
[2022-10-26 06:45] LABS: Calcium 8.9 mg/dl (8.6-10.3); Est GFR (African American) 108.4 ml/min; Est GFR (Non-African American) 93.5 ml/min; Potassium 3.7 mmol/L (3.5-5.1)
[2022-10-26] MEDS: CITALOPRAM 40 MG TAB PO SCH (09:35)
[2022-10-26] MEDS: lisinopril 10 MG TAB PO SCH (09:35)
--- NOTE | 2022-10-26 13:24 | Hospitalist Progress Note ---
Date of Service October 26, 2022 Assessment & Plan (1) Colitis: (2) Acute GI bleeding: (3) Abdominal pain: (4) Leukocytosis: Plan 62-year-old female who has a significant past medical history of HTN, chronic migraine, chronic daily headache, panic disorder, GERD who presents to ED 10/23 secondary to abdominal pain and bloody diarrhea x1 day. Colitis: likely infectious etiology as LA nl. Acute GI bleeding, likely lower GI Abdominal pain Leukocytosis c/w PCU in setting of GI bleeding Current hemoglobin stable c/w LR and npo. hold off on PPI. c/w zosyn 10/23. WBC trending down, pt afebrile. Monitor HnH and transfuse if Hb<7 or for symptomatic anemia Clinically much better without any abdominal symptoms and no more diarrhea and or bleeding per rectum Hemoglobin remains stable at 11.6 Appreciate GI input and recommendation We will have outpatient colonoscopy Started on diet Hemoglobin remains stable without any other symptoms she will be discharged home tomorrow Clinically much better without any symptoms and tolerating regular diet No more diarrhea and does not have any bleeding Will be discharged home this afternoon Migraine GOTTLIEB, chronic continue elavil, prn tizanadine No acute symptom HTN bp elevated in ED, likely 2/2 pain continue lisinopril, better controlled now. Remains on the upper side at 164/91-expected to improve Panic disorder continue cymbalta DVT ppx: SCDs 2/2 GI Bleeding FULL CODE PCP: Dr. Laureano Whitaker Discharged home this afternoon Admission and Anticipated Discharge Date Admission Date: October 23, 2022 Subjective 10/25/2022 The patient was seen and examined in telemetry unit She has been feeling much better and denies any more abdominal pain, nausea or vomiting Did not have any more bleeding since admission 10/26/2022 The patient was seen and examined in telemetry unit She has been feeling much better and denies any abdominal pain, nausea and or vomiting No more diarrhea and she has been ambulating without any symptoms She will be discharged home this afternoon Review of Systems Review of Systems: All systems reviewed and are unremarkable except as noted below Physical Exam Physical Exam: Lying in bed comfortably Constitutional: well developed, well nourished and average body habitus; not ill appearing Eyes: PERRL, conjunctivae normal, anicteric sclerae ENMT: external ear and nose normal, oropharynx normal Neck: trachea midline, no thyromegaly Respiratory: no respiratory distress Auscultation: lungs clear to auscultation bilaterally Cardiovascular: Rate/Rhythm: regular rate and regular rhythm; not tachycardic Heart Sounds: normal S1 and normal S2; no murmur Extremities: no edema Gastrointestinal (Abdomen): Inspection/Auscultation: normal bowel sounds; abdomen not distended Percussion/Palpation: abdomen soft; abdomen nontender Neurologic: normal touch/pain/proprioception and moves all extremities; no focal motor deficits Psychiatric: A+Ox3, euthymic affect Lymphatic: no cervical or axillary lymphadenopathy Results & Data Results & Data Vital Signs (Past 12 Hours) Vital Signs Temp Pulse Pulse Resp BP Pulse Ox O2 Del Method 10/26/22 11:28 36.5 C 78 16 164/91 H 96 Room Air 10/26/22 07:43 36.2 C L 73 16 166/81 H 99 Room Air 10/26/22 07:21 70 10/26/22 03:33 36.5 C 84 18 145/84 H 95 Room Air 10/26/22 03:00 71 Laboratory Results Short CBC 10/26/22 Range/Units 05:36 WBC 10.07 (4.8-10.8) K/ul Hgb 11.3 L (12.0-16.0) g/dl Hct 32.9 L (37.0-47.0) % Plt Count 311 (130-400) K/uL [facility] 10/26/22 05:36 Sodium 140 Potassium 3.7 Chloride 107 Carbon Dioxide 26 BUN 7 Creatinine 0.70 Glucose 76 Calcium 8.9 Medications Administered Current Inpatient Medications Acetaminophen (Acetaminophen 325 Mg Tab) 650 mg PO Q4H PRN PRN Reason: Pain or Fever Stop: 11/22/22 18:18 Amitriptyline HCl (Amitriptyline Hcl 50 Mg Tab) 50 mg PO HS [facility] Stop: 11/22/22 20:59 Last Admin: 10/25/22 20:13 Dose: 50 mg Citalopram Hydrobromide (Citalopram 40 Mg Tab) 40 mg PO QAM [facility] Stop: 11/23/22 08:59 Last Admin: 10/26/22 09:35 Dose: 40 mg Piperacillin Sod/Tazobactam (Sod 4.5 gm/ Dextrose) 120 mls @ 30 mls/hr IV Q8H [facility]; Protocol Stop: 11/02/22 00:00 Last Infusion: 10/26/22 12:27 Dose: Infused Acetaminophen (Ofirmev) 1,000 mg in 100 mls @ 400 mls/hr IV Q8H [facility] Stop: 10/26/22 18:59 Last Infusion: 10/26/22 11:36 Dose: Infused Lactated Ringer's (Lr) 1,000 mls @ 125 mls/hr IV .Q8H [facility] Stop: 11/22/22 18:18 Last Admin: 10/26/22 08:56 Dose: 125 mls/hr Lisinopril (Lisinopril 10 Mg Tab) 10 mg PO QAM [facility] Stop: 11/23/22 08:59 Last Admin: 10/26/22 09:35 Dose: 10 mg Morphine Sulfate (Morphine Sulfate 4 Mg/Ml 1 Ml Carp\Vial) 4 mg IV Q3H PRN PRN Reason: Pain (6,7,8,9,10) Stop: 11/06/22 18:18 Morphine Sulfate (Morphine Sulfate 2 Mg/Ml Carp) 2 mg IV Q3H PRN PRN Reason: Pain (1,2,3,4,5) & Pre PT Stop: 11/06/22 18:18 Ondansetron HCl (Ondansetron Inj 2 Mg/Ml 2 Ml Vial) 4 mg IV Q6H PRN PRN Reason: Nausea Stop: 11/22/22 18:18 Tizanidine HCl (Tizanidine Hcl 4 Mg Tablet) 4 mg PO Q8H PRN PRN Reason: Muscle Spasm Stop: 11/22/22 18:18
[2022-10-26] MEDS ORDERED: AMOXICILLIN/CLAVULANATE 875 MG TAB PO ONE (13:29)
--- NOTE | 2022-10-26 17:07 | Discharge Summary ---
Date of Service October 26, 2022 Admission HPI Per Admitting Provider This is a 62-year-old female who has a significant past medical history of HTN, chronic migraine, chronic daily headache, panic disorder, GERD who presents to ED secondary to abdominal pain and bloody diarrhea x1 day. Symptoms started at approximately 1 AM this morning when she developed centralized and lower suprapubic abdominal pain. Pain was constant but would wax and wane in severity. Described as dull and occasionally crampy. Pain did not radiate. She is never experienced this before. It was initially associated with a few episodes of diarrhea and now mostly just passing bright red blood per rectum. Currently pain is a 4 out of 10 but at its worst was an 8 out of 10. She has not tried anything to relieve the pain. Leaning forward makes the pain worse. She does have history of colonoscopy back in 2012 which was otherwise unremarkable. Only prior abdominal history was a tubal. She is a prior tobacco smoker and currently does vape nicotine. She occasionally has alcohol. She denies any recent travel, sick contacts or change in diet. She denies any fever, chills, sweats, lightheadedness, dizziness, chest pain, shortness of breath, cough, nausea, vomiting. She currently does have a headache and attributes this to her chronic daily headache. She is currently requesting something for pain. In ED patient remained hemodynamically stable that was significantly hypertensive. CBC revealed leukocytosis at 19.21 K, H&H stable at 13.7 and 39.2, glucose mildly elevated at 110, lactic acid normal at 1.5 and procalcitonin 0.13. Admission Exam Per Admitting Provider Physical Exam: Constitutional: WD/WN, vitals as above, NAD, sitting up in bed, pleasant, conversing easily Head: Normocephalic, Atraumatic Eyes: PERRL, conjunctivae normal, anicteric sclerae ENMT: external ear and nose normal, oropharynx normal Neck: trachea midline, no thyromegaly normal visual inspection Respiratory: normal respiratory effort, lungs clear to auscultation, no wheeze, rales, rhonchi. Normal insp/exp effort, no accessory muscle use Cardiovascular: RRR, no murmur, no edema Vessels: no JVD or carotid bruit Chest: normal inspection of chest Abdomen: normal bowel sounds, soft, minimally tender to palp LUQ, no hepatosplenomegaly Musculoskeletal: no cyanosis or clubbing, extremities motor strength 5/5 Skin: no rashes, warm and dry normal turgor Neurologic: PERRL, EOMI, accommodation nl, no face palsy, no dysarthria CN's II-XI intact bilaterally and moves all extremities Psychiatric: A+Ox3, euthymic affect Lymphatic: no cervical or axillary lymphadenopathy : deferred Principal Diagnosis Nonspecific colitis, GI bleed-stopped, migraine, hypertension Discharge Exam Lying in bed comfortably Constitutional well developed, well nourished and average body habitus; not ill appearing Eyes PERRL, conjunctivae normal, anicteric sclerae ENMT external ear and nose normal, oropharynx normal Neck trachea midline, no thyromegaly Respiratory no respiratory distress Auscultation: lungs clear to auscultation bilaterally Cardiovascular Rate/Rhythm: regular rate and regular rhythm; not tachycardic Heart Sounds: normal S1 and normal S2; no murmur Extremities: no edema Gastrointestinal (Abdomen) Inspection/Auscultation: normal bowel sounds; abdomen not distended Percussion/Palpation: abdomen soft; abdomen nontender Neurologic normal touch/pain/proprioception and moves all extremities; no focal motor deficits Psychiatric A+Ox3, euthymic affect Lymphatic no cervical or axillary lymphadenopathy Discharge Data Allergies Allergy/AdvReac Type Severity Reaction Status Date / Time No Known Drug Allergies AdvReac Unknown Verified 10/23/22 17:44 Consultations 10/23/22 16:17 ED Decision to Admit Stat 10/23/22 17:30 Consult Gastroenterology Routine Ordered Studies 10/23/22 12:50 CT abd pelvis IV con only Stat Hospital Course (1) Colitis: (2) Acute GI bleeding: (3) Abdominal pain: (4) Leukocytosis: Plan 62-year-old female who has a significant past medical history of HTN, chronic migraine, chronic daily headache, panic disorder, GERD who presents to ED 10/23 secondary to abdominal pain and bloody diarrhea x1 day. Colitis: likely infectious etiology as LA nl. Acute GI bleeding, likely lower GI Abdominal pain Leukocytosis c/w PCU in setting of GI bleeding Current hemoglobin stable c/w LR and npo. hold off on PPI. c/w zosyn 10/23. WBC trending down, pt afebrile. Monitor HnH and transfuse if Hb<7 or for symptomatic anemia Clinically much better without any abdominal symptoms and no more diarrhea and or bleeding per rectum Hemoglobin remains stable at 11.6 Appreciate GI input and recommendation We will have outpatient colonoscopy Started on diet Hemoglobin remains stable without any other symptoms she will be discharged home tomorrow Clinically much better without any symptoms and tolerating regular diet No more diarrhea and does not have any bleeding Will be discharged home this afternoon Migraine GOTTLIEB, chronic continue elavil, prn tizanadine No acute symptom HTN bp elevated in ED, likely 2/2 pain continue lisinopril, better controlled now. Remains on the upper side at 164/91-expected to improve Panic disorder continue cymbalta DVT ppx: SCDs 2/2 GI Bleeding FULL CODE PCP: Dr. Laureano Whitaker Discharged home this afternoon Total Time Total Time Spent Total Time Spent (In Minutes): 35 minutes Discharge Plan Discharge Items Patient Disposition: Home - Self-Care Reason For Visit: COLITIS Discharge Diagnosis: Nonspecific colitis, GI bleed-stopped, migraine, hypertension Condition on Discharge: Good Activity: Resume your previous activity Non-emergency contact: Primary Care Provider Call non-emergency contact if: you have any medication questions and your sympt oms worsen Follow-up/Referrals: Megha Mazariegos CRNP [Nurse Practitioner] - (The GI office will call you with an appointment date.) Laureano Whitaker MD [Outside Practitioners] - (Date & Time 10/31/2022 11:20 AM Provider Laureano Whitaker MD [facility] ) Diet: Low Fiber Diet Texture: Dental soft (bite-sized) Addtl Attending Provider Instructions: Please take precautions to avoid fall Finish the course of antibiotic Try to drink more fluid Please keep appointment with your healthcare providers Pending Studies at Discharge: No Stand-Alone Forms: My 1calendar, Smoking Cessation Medications and DC Order Prescriptions: New amoxicillin 875 mg tablet 875 mg PO BID Qty: 12 0RF Continued citalopram 40 mg tablet 40 mg PO QAM tizanidine 4 mg tablet 4 mg PO Q8H PRN (Reason: Muscle Spasm) acetaminophen 500 mg Tablet 500 mg PO Q6H PRN (Reason: Pain) amitriptyline 25 mg tablet 50 mg PO HS triamcinolone acetonide 0.1 % ointment 1 applic TOPICAL DAILY lisinopril 10 mg tablet 10 mg PO QAM Discharge Orders: Discharge Order (Routine); Ordered 10/26/22 Ordered By: Dionte Galaviz Admission Data Admit Date/Time: 10/23/22 16:22 Attending Provider: Dionte Galaviz Admit Provider: Katherine Perez Primary Care Provider: PCP,NO Other Providers: Katherine Perez ; Queta Garza ; Alvaro Lowery Other Interventions: Discharge Summary Assessment (RN) Last Done: 10/26/22 13:46
== END 2022-10-26 15:14 | disposition home or self-care (01) | DRG 392 ==
LOC: EDSEX 11:01 → ED 11:01 → EDBD 11:01 → 4W 16:22 → SUATTDRO 16:22 → 4W 17:35